=== PATIENT | female | born 1970 | race Caucasian/White ===

== ENCOUNTER → 2022-01-22 | Emergency (ER) | payer MEDICAID, MEDICARE ==
[~2022-01-22] VITALS: Ht 160 cm; Wt 100.2 kg
[~2022-01-22] MED LIST: ALBU17AE26 IH; NIRM1TAB PO; PRED20TA PO; PROZAC; XANAX
[2022-01-22 13:30] VITALS: BP_SYST 136
[2022-01-22 13:45] VITALS: BP_SYST 136
== END | disposition home or self-care (01) ==
LOC: SED 13:15
DX: U07.1 COVID-19 (principal); J40 Bronchitis, not specified as acute or chronic; R05.9 Cough, unspecified; R07.89 Other chest pain; R09.81 Nasal congestion
CPT/HCPCS: 71045; 93005; 99283

== ENCOUNTER 2022-04-16 17:04 | Emergency (ER) | payer MEDICAID ==
[~2022-04-16] VITALS: Ht 160 cm; Wt 100.2 kg
[2022-04-16 17:05] VITALS: BP_SYST 114
--- NOTE | 2022-04-16 17:11 | NUR ---
Patient triaged and placed in waiting room. VSS and patient appears in no acute distress at this time. Accompanied by SELF, awaiting available bed, and MD notified of need for MSE.
--- NOTE | 2022-04-16 17:33 | NUR ---
JUAN SWABBED AND SENT TO LAB
[2022-04-16 19:51] VITALS: BP_SYST 114
--- NOTE | 2022-04-16 19:53 | NUR ---
Patient given written and verbal discharge instructions and verbalizes understanding. ER MD discussed with patient the results and treatment provided. Patient in stable condition. ID arm band removed. No Rx given. Patient educated on pain management and to follow up with PMD. Pain Scale 2/10 Opportunity for questions provided and answered. Medication side effect fact sheet provided.
== END 2022-04-16 19:51 | disposition home or self-care (01) ==
LOC: SED 17:04
DX: R05.9 Cough, unspecified (principal); R07.9 Chest pain, unspecified; R06.2 Wheezing; Z79.899 Other long term (current) drug therapy; Z20.822 Contact with and (suspected) exposure to COVID-19
CPT/HCPCS: 36415; 71045; 99284